=== PATIENT | female | born 1975 | race Caucasian/White ===

== ENCOUNTER → 2017-12-07 | Emergency (ER) | payer OTHER ==
[~2017-12-07] VITALS: Ht 162.6 cm; Wt 62.1 kg
[~2017-12-07] MED LIST: CEPHALEXIN500 M1; MUPIROCIN22 GM TOP
== END | disposition home or self-care (01) ==
LOC: ER 11:21
DX: L03.115 Cellulitis of right lower limb (principal); S80.87 Other superficial bite of lower leg; W55.01XS Bitten by cat, sequela

== ENCOUNTER 2017-12-11 18:25 | Inpatient (IN) | payer OTHER ==
[~2017-12-11] VITALS: Ht 162.6 cm; Wt 62.1 kg
== END 2017-12-15 18:42 | disposition home or self-care (01) | DRG 603 ==
LOC: SEC-K 18:25 → MEDI 12-12 13:09
PROC: B44HZZZ Ultrasonography of Bilateral Lower Extremity Arteries (ICD-10-PCS; principal; 2017-12-11)
PROC: B54DZZZ Ultrasonography of Bilateral Lower Extremity Veins (ICD-10-PCS; 2017-12-13)
DX: L03.115 Cellulitis of right lower limb (principal); S91.351A Open bite, right foot, initial encounter; W55.01XA Bitten by cat, initial encounter; Y93.89 Activity, other specified; Y92.89 Other specified places as the place of occurrence of the external cause; Y99.8 Other external cause status; D50.0 Iron deficiency anemia secondary to blood loss (chronic); N92.1 Excessive and frequent menstruation with irregular cycle; I87.2 Venous insufficiency (chronic) (peripheral)

== ENCOUNTER 2020-09-22 07:33 | Outpatient (CLI) | payer OTHER | END 2020-09-22 07:45 | disposition home or self-care (01) | LOC: SONOGRAMA 07:33 | PROVIDERS: ATTEND Surgery | DX: R10.84 Generalized abdominal pain (principal); K59.09 Other constipation; Z12.11 Encounter for screening for malignant neoplasm of colon; N80.5 Endometriosis of intestine ==

== ENCOUNTER → 2020-09-22 09:25 | Outpatient (CLI) | payer OTHER ==
[~2020-09-22 09:25] MED LIST changes: +MEDROXYPROGESTE10 MG PO
== END | disposition home or self-care (01) ==
LOC: LAB 09:25
PROVIDERS: ATTEND Surgery
DX: K59.09 Other constipation (principal); N80.5 Endometriosis of intestine; Z12.11 Encounter for screening for malignant neoplasm of colon

== ENCOUNTER 2020-09-28 08:06 | Outpatient (CLI) | payer OTHER ==
[~2020-09-28 08:06] MED LIST changes: -MEDROXYPROGESTE10 MG PO
[2020-09-28] MEDS ORDERED: MEDROXYPROGESTE10 MG PO (16:03)
== END 2020-09-28 08:23 | disposition home or self-care (01) ==
LOC: NUCLEAR 08:06
PROVIDERS: ATTEND Surgery
DX: R10.13 Epigastric pain (principal); R14.3 Flatulence
CPT/HCPCS: 78227; A9537; J2805

== ENCOUNTER 2020-09-28 10:00 | Inpatient (IN) | payer OTHER ==
[~2020-09-28] VITALS: Ht 162.6 cm; Wt 59.9 kg
[2020-09-28] MEDS ORDERED: MEDROXYPROGESTE10 MG PO (16:03)
[2020-10-07] MEDS ORDERED: DICLOFENAC POTA50 MG (10:06)
[2020-10-09] MEDS ORDERED: CELEBREX200MG PO (08:31)
[2020-10-09] MEDS ORDERED: NORFLEX100MG PO (08:32)
== END 2020-10-09 11:08 | disposition home or self-care (01) | DRG 743 ==
LOC: ADM 10:00 → EDSTATUS 10:00 → SURH 10-07 06:00 → O/R 10-07 06:00 → SURH 10-07 07:00
PROVIDERS: Obstetrics & Gynecology Gynecology; ADMIT Surgery; ATTEND Surgery
PROC: 0UT14ZZ Resection of Left Ovary, Percutaneous Endoscopic Approach (ICD-10-PCS; 2020-10-07)
PROC: 0DNW4ZZ Release Peritoneum, Percutaneous Endoscopic Approach (ICD-10-PCS; 2020-10-07)
PROC: 0DJD8ZZ Inspection of Lower Intestinal Tract, Via Natural or Artificial Opening Endoscopic (ICD-10-PCS; 2020-10-07)
PROC: 0UT94ZZ Resection of Uterus, Percutaneous Endoscopic Approach (ICD-10-PCS; principal; 2020-10-07 07:00)
PROC: 0UT64ZZ Resection of Left Fallopian Tube, Percutaneous Endoscopic Approach (ICD-10-PCS; 2020-10-07 07:00)
DX: N80.0 Endometriosis of uterus (principal); N72 Inflammatory disease of cervix uteri; N83.292 Other ovarian cyst, left side; Z20.828 Contact with and (suspected) exposure to other viral communicable diseases; K66.0 Peritoneal adhesions (postprocedural) (postinfection)

== ENCOUNTER 2020-10-05 11:07 | Day surgery (SDC) | payer OTHER ==
[~2020-10-05 11:07] MED LIST changes: +MEDROXYPROGESTE10 MG PO
== END 2020-10-05 15:37 | disposition home or self-care (01) ==
LOC: AMB-ENDOS 11:07
PROVIDERS: ATTEND Surgery
DX: K62.89 Other specified diseases of anus and rectum (principal); K52.89 Other specified noninfective gastroenteritis and colitis; Z20.828 Contact with and (suspected) exposure to other viral communicable diseases; Z12.11 Encounter for screening for malignant neoplasm of colon

== ENCOUNTER 2022-08-16 09:10 | Outpatient (CLI) | payer OTHER ==
[~2022-08-16 09:10] MED LIST changes: +CELEBREX200MG PO; +DICLOFENAC POTA50 MG; +NORFLEX100MG PO
== END 2022-08-16 09:30 | disposition home or self-care (01) ==
LOC: TOM 09:10
PROVIDERS: ATTEND Surgery
DX: K59.2 Neurogenic bowel, not elsewhere classified (principal); R10.2 Pelvic and perineal pain

== ENCOUNTER 2024-11-09 18:32 | Emergency (ER) | payer OTHER ==
[~2024-11-09] VITALS: Ht 162.6 cm; Wt 63.5 kg
[2024-11-09] MEDS ORDERED: ACETAMINOPHEN 500 MG GEL..CAP PO ONE ×2 (19:03→19:15)
[2024-11-09] MEDS ORDERED: 0.9 % SODIUM CHLORIDE 1,000 ML IV ONE (19:15)
[2024-11-09 20:46] LABS: HEMATOCRIT 37.5 % (36.0-45.00); HEMOGLOBIN 12.4 g/dL (12.0-15.00); MEAN CELL VOLUME 81.3 fL (80.00-100.00); MEAN CORPUSCULAR HEMOGLOBIN 26.9 pg (27.00-32.0); MEAN CORPUSCULAR HGB CONC 33.2 g/dl (32.0-36.0); RED BLOOD COUNT 4.61 M/uL (4.00-6.00); RED CELL DISTRIBUTION WIDTH 13.3 % (11.5-14.5)
[2024-11-09 20:51] LABS: PLATELET COUNT 57 K/uL (150-450)
[2024-11-09 20:57] LABS: CALCIUM 8.1 mg/dL (8.5-10.1); CREATININE SERUM 0.74 mg/dL (0.55-1.02); GFR 83.07; POTASSIUM 3.74 mEq/L (3.5-5.1)
== END 2024-11-09 22:26 | disposition home or self-care (01) ==
LOC: ER 18:35
PROVIDERS: General Practice
DX: A90 Dengue fever [classical dengue] (principal); Z88.2 Allergy status to sulfonamides

== ENCOUNTER 2024-11-10 13:24 | Inpatient (IN) | payer OTHER ==
[~2024-11-10] VITALS: Ht 152.4 cm; Wt 63.5 kg
[2024-11-10] MEDS ORDERED: 0.9 % SODIUM CHLORIDE 500 ML IV STA (14:08)
[2024-11-10] MEDS ORDERED: ONDANSETRON HCL 2 MG/ML VIAL IV ONE (14:15)
[2024-11-10] MEDS ORDERED: ONDANSETRON HCL 2 MG/ML VIAL ONE (14:25)
[2024-11-10 15:44] LABS: CALCIUM 9.1 mg/dL (8.5-10.1); CREATININE SERUM 0.84 mg/dL (0.55-1.02); GFR 71.77; POTASSIUM 3.93 mEq/L (3.5-5.1)
[2024-11-10 16:16] LABS: HEMATOCRIT 39.8 % (36.0-45.00); HEMOGLOBIN 13.4 g/dL (12.0-15.00); MEAN CELL VOLUME 81.5 fL (80.00-100.00); MEAN CORPUSCULAR HEMOGLOBIN 27.4 pg (27.00-32.0); MEAN CORPUSCULAR HGB CONC 33.6 g/dl (32.0-36.0); RED BLOOD COUNT 4.89 M/uL (4.00-6.00); RED CELL DISTRIBUTION WIDTH 13.4 % (11.5-14.5)
[2024-11-10 16:22] LABS: PLATELET COUNT 39 K/uL (150-450)
[2024-11-10 17:42] LABS: URINE APPEARANCE Clear; URINE BILIRRUBIN Negative (NEGATIVE); URINE BLOOD Negative; URINE COLOR Yellow; URINE GLUCOSE Negative (NEGATIVE); URINE KETONE Trace (NEGATIVE); URINE LEUKOCYTE Negative; URINE NITRATE Negative; URINE UROBILINOGEN 0.2 E.U./dl
[2024-11-10 17:46] LABS: URINE BACTERIA 9.7 uL (0.0-1933); URINE RBC 10.6 uL (0.0-20.8); URINE WBC 2.8 uL (0.0-23.2)
[2024-11-10 17:53] LABS: URINE EPITHELIAL CELLS 1.2 uL (0.0-38.8); URINE PROTEIN 100 (NEGATIVE)
[2024-11-10] MEDS ORDERED: 0.9 % SODIUM CHLORIDE 1,000 ML IV SCH (19:15)
[2024-11-10] MEDS ORDERED: ACETAMINOPHEN 325 MG TABLET PO PRN (19:15)
[2024-11-10] MEDS ORDERED: ONDANSETRON HCL 4 MG in 0.9 % SODIUM CHLORIDE 50 ML IV PRN (19:15)
[2024-11-10 19:39] VITALS: BP 105/72; O2SAT 99
[2024-11-10 22:23] VITALS: BP 93/51; O2SAT 98
[2024-11-10 22:27] VITALS: BP 82/46; O2SAT 96
[2024-11-11] VITALS: BP 92/59; O2SAT 95
[2024-11-11 08:16] LABS: HEMATOCRIT 37.8 % (36.0-45.00); HEMOGLOBIN 12.5 g/dL (12.0-15.00); INR 1.01; MEAN CELL VOLUME 81.6 fL (80.00-100.00); MEAN CORPUSCULAR HEMOGLOBIN 27.1 pg (27.00-32.0); MEAN CORPUSCULAR HGB CONC 33.2 g/dl (32.0-36.0); PARTIAL THROMBOPLASTIN TIME 33.9 SECONDS (22.0-34.0); RED BLOOD COUNT 4.64 M/uL (4.00-6.00); RED CELL DISTRIBUTION WIDTH 13.7 % (11.5-14.5)
[2024-11-11 08:30] VITALS: BP 97/65; O2SAT 97
[2024-11-11] MEDS ORDERED: ACETAMINOPHEN 500 MG GEL..CAP PO PRN (09:00)
[2024-11-11] MEDS ORDERED: PANTOPRAZOLE SODIUM 40 MG/VIAL VIAL IV SCH (09:00)
[2024-11-11 09:06] LABS: PLATELET COUNT 32 K/uL (150-450)
[2024-11-11 09:11] LABS: PLT IN CITRATE 27 K/uL (150-450)
[2024-11-11 16:31] VITALS: BP 100/70; O2SAT 96
[2024-11-12 00:32] VITALS: BP 100/51; O2SAT 97
[2024-11-12 08:08] VITALS: BP 115/68; O2SAT 97
[2024-11-12 16:13] VITALS: BP 102/31; O2SAT 99
[2024-11-13] VITALS: BP 96/65; O2SAT 98
[2024-11-13 07:22] LABS: HEMATOCRIT 36.1 % (36.0-45.00); MEAN CELL VOLUME 82.2 fL (80.00-100.00); MEAN CORPUSCULAR HEMOGLOBIN 27.2 pg (27.00-32.0); MEAN CORPUSCULAR HGB CONC 33.1 g/dl (32.0-36.0); RED BLOOD COUNT 4.39 M/uL (4.00-6.00); RED CELL DISTRIBUTION WIDTH 13.2 % (11.5-14.5)
[2024-11-13 07:34] LABS: PLATELET COUNT 87 K/uL (150-450)
[2024-11-13 08:08] LABS: ALBUMIN 3.1 gm/dL (3.4-5.0); BILIRUBIN TOTAL 0.26 mg/dL (0.3-1.2); CALCIUM 8.5 mg/dL (8.5-10.1); CREATININE SERUM 0.6 mg/dL (0.55-1.02); GFR 105.82; GLOBULINA 3.1 G/DL (2.4-3.5); POTASSIUM 4.46 mEq/L (3.5-5.1); TOTAL PROTEIN 6.2 gm/dL (6.4-8.2)
[2024-11-13 08:38] VITALS: BP 90/60; O2SAT 98
== END 2024-11-13 13:48 | disposition home or self-care (01) | DRG 813 ==
LOC: ER 13:26 → SEC-K 19:53 → SURH 19:53
PROVIDERS: General Practice; ADMIT Internal Medicine; ATTEND Internal Medicine
PROC: BW40ZZZ Ultrasonography of Abdomen (ICD-10-PCS; principal; 2024-11-10)
DX: D69.6 Thrombocytopenia, unspecified (principal); A90 Dengue fever [classical dengue]